=== PATIENT | male | born 1995 | race Caucasian/White ===

== ENCOUNTER 2017-05-05 17:18 | Emergency (ER) | payer OTHER ==
[~2017-05-05] VITALS: Ht 185.4 cm; Wt 74.0 kg
[2017-05-05 20:25] VITALS: BP 118/71
== END 2017-05-05 20:29 | disposition home or self-care (01) ==
LOC: EME 17:18
PROC: 0HQ0XZZ Repair Scalp Skin, External Approach (ICD-10-PCS; principal; 2017-05-05)
DX: S01.01XA Laceration without foreign body of scalp, initial encounter (principal); Y99.0 Civilian activity done for income or pay; W22.09XA Striking against other stationary object, initial encounter; F17.200 Nicotine dependence, unspecified, uncomplicated
CPT/HCPCS: 70450; 99281; 99284